=== PATIENT | male | born 1970 | race Caucasian/White ===

== ENCOUNTER 2017-06-24 18:36 | Observation (INO) | payer BC, OTHER ==
[~2017-06-24] VITALS: Ht 182.9 cm; Wt 105.3 kg
[2017-06-24] MEDS ORDERED: ASPIRIN 325 MG TABLET ONE (18:48)
[2017-06-24 18:57] LABS: BASOPHILS % (AUTO) 0.2 % (0.0-5.0); EOSINOPHILS % (AUTO) 0.2 % (0.0-8.0); HEMATOCRIT 45.3 % (42-54); LYMPHOCYTES % (AUTO) 11.4 % (21.0-51.0); MEAN CORPUSCULAR HEMOGLOBIN 30.2 pg (27.0-33.0); MEAN CORPUSCULAR HGB CONC 34.9 g/dL (32.0-36.0); MEAN CORPUSCULAR VOLUME 86.4 fL (79-99); MONOCYTES % (AUTO) 8.4 % (3.0-13.0); NEUTROPHILS % (AUTO) 79.8 % (40.0-77.0); NUCLEATED RED BLOOD CELLS 0.1 % (0.0-0.19); PLATELET COUNT (AUTO) 262 K/uL (130-400); RED BLOOD CELL COUNT(AUTO) 5.24 MIL/uL (4.50-6.20); RED CELL DISTRIBUTION WIDTH 13.2 % (11.0-15.5); WHITE BLOOD COUNT (AUTO) 12.7 K/uL (4.8-10.8)
[2017-06-24 19:08] LABS: INR 0.98 (0.85-1.15); PARTIAL THROMBOPLASTIN TIME 27.6 SEC (26.3-35.5); PROTHROMBIN TIME 10.3 SEC (9.6-11.6)
[2017-06-24 19:10] LABS: CREATININE 1.4 mg/dL (0.5-1.5); POTASSIUM 3.2 mmol/L (3.5-5.1)
[2017-06-24 19:24] LABS: ALBUMIN 4.3 g/dL (3.5-5.0); BILIRUBIN,TOTAL 0.5 mg/dL (0.2-1.0); CREATINE KINASE MB 1.7 ng/mL (0.5-3.6); TOTAL PROTEIN, SERUM 8.2 g/dL (6.0-8.3)
[2017-06-24] MEDS ORDERED: NITROGLYCERIN 1GM/1 INCH PACKET TD ONE (19:24)
[2017-06-24] MEDS ORDERED: FENTANYL CITRATE PF 50 MCG/1 ML 2ML VIAL ONE (21:01)
[2017-06-24] MEDS ORDERED: METOPROLOL TARTRATE 25 MG TAB ONE (22:19)
[2017-06-25] MEDS ORDERED: MORPHINE SULFATE 4 MG/1ML SYG ONE (01:16)
[2017-06-25] MEDS ORDERED: SODIUM CHLORIDE 0.9% 1000ML 1,000 ML IV SCH (01:36)
[2017-06-25] MEDS ORDERED: IPRATROPIUM/ALBUTEROL SULFATE 3 ML SOLUTION IH PRN (01:45)
[2017-06-25] MEDS ORDERED: MORPHINE SULFATE 2 MG/ML 1ML SYG IVP PRN (01:45)
[2017-06-25] MEDS ORDERED: ONDANSETRON HCL 4 MG/2 ML VIAL IVP PRN (01:45)
[2017-06-25] MEDS ORDERED: ACETAMINOPHEN 325 MG TAB PO PRN (01:45)
[2017-06-25] MEDS ORDERED: LIDOCAINE HCL-MPF 1% 2ML VIAL IVP PRN (01:45)
[2017-06-25] MEDS ORDERED: POTASSIUM CHLORIDE 10% ELIXIR 20 MEQ/15 ML UDCUP PO PRN (01:45)
[2017-06-25] MEDS ORDERED: HYDRALAZINE HCL 20 MG/ML VIAL IV PRN (01:45)
[2017-06-25] MEDS ORDERED: POTASSIUM CHLORIDE 20 MEQ ERTAB PO PRN (01:45)
[2017-06-25] MEDS: NITROGLYCERIN 1GM/1 INCH PACKET TD SCH ×3 (01:45→17:45)
[2017-06-25] MEDS ORDERED: POTASSIUM CHLORIDE 20MEQ/100ML 100 ML IV PRN (01:45)
[2017-06-25 01:49] LABS: APPEARANCE,URINE Clear (CLEAR); BILIRUBIN,URINE Negative (NEGATIVE); COLOR,URINE Yellow (YELLOW); GLUCOSE, URINE (UA) Negative (NEGATIVE); KETONES,URINE Negative (NEGATIVE); LEUKOCYTE ESTERASE ,URINE Negative (NEGATIVE); NITRATE,URINE Negative (NEGATIVE); OCCULT BLOOD,URINE Negative (NEGATIVE); PH,URINE 5.5 (5.0-8.0); PROTEIN,URINE Negative (NEGATIVE); UROBILINOGEN,URINE 0.2 mg/dL (0.2-1.0)
[2017-06-25 05:32] LABS: BASOPHILS % (AUTO) 0.2 % (0.0-5.0); EOSINOPHILS % (AUTO) 0.4 % (0.0-8.0); HEMATOCRIT 42.1 % (42-54); LYMPHOCYTES % (AUTO) 15.4 % (21.0-51.0); MEAN CORPUSCULAR HGB CONC 34.9 g/dL (32.0-36.0); MEAN CORPUSCULAR VOLUME 86.1 fL (79-99); PLATELET COUNT (AUTO) 241 K/uL (130-400); RED BLOOD CELL COUNT(AUTO) 4.89 MIL/uL (4.50-6.20); RED CELL DISTRIBUTION WIDTH 13.1 % (11.0-15.5); WHITE BLOOD COUNT (AUTO) 11.8 K/uL (4.8-10.8)
[2017-06-25 05:57] LABS: CREATININE 1.5 mg/dL (0.5-1.5); THYROID STIMULATING HORMONE 3.56 uIU/mL (0.36-3.74)
[2017-06-25] MEDS ORDERED: SODIUM CHLORIDE 0.9% 1000ML 1,000 ML IV ONE (05:57)
[2017-06-25] MEDS ORDERED: ROSU10TA PO (08:14)
[2017-06-25 08:19] LABS: CREATINE KINASE MB 0.6 ng/mL (0.5-3.6); CREATINE KINASE, TOTAL 324 U/L (21-232); MYOGLOBIN 76 ng/mL (10-92); TROPONIN I < 0.04 ng/mL (0.00-0.06)
[2017-06-25] MEDS ORDERED: ASPIRIN 325 MG TABLET ONE (08:32)
[2017-06-25] MEDS ORDERED: METOPROLOL TARTRATE 25 MG TAB ONE (08:32)
[2017-06-25] MEDS ORDERED: NITROGLYCERIN 1GM/1 INCH PACKET TD ONE (08:32)
[2017-06-25] MEDS ORDERED: FAMOTIDINE 20MG TAB 20 MG TAB ONE (08:33)
[2017-06-25] MEDS: METOPROLOL TARTRATE 25 MG TAB PO SCH ×2 (09:00→20:47)
[2017-06-25] MEDS: ASPIRIN 325 MG TABLET PO SCH (09:00)
[2017-06-25] MEDS: FAMOTIDINE 20MG TAB 20 MG TAB PO SCH ×2 (09:00→20:47)
[2017-06-25 12:20] VITALS: BP 116/80
[2017-06-25 12:38] LABS: CREATINE KINASE MB < 0.5 ng/mL (0.5-3.6); CREATINE KINASE, TOTAL 256 U/L (21-232)
[2017-06-25] MEDS: REGADENOSON 0.4 MG/5 ML PF SYG IVP SCH ×2 (15:45→17:29)
[2017-06-25 18:55] VITALS: BP 137/88
[2017-06-25 19:35] VITALS: BP 152/68
[2017-06-26 00:05] VITALS: BP 94/55
[2017-06-26] MEDS: NITROGLYCERIN 1GM/1 INCH PACKET TD SCH ×2 (02:14→09:45)
[2017-06-26 03:53] VITALS: BP 121/84
[2017-06-26 04:25] LABS: BASOPHILS % (AUTO) 0.3 % (0.0-5.0); EOSINOPHILS % (AUTO) 0.9 % (0.0-8.0); HEMATOCRIT 40.1 % (42-54); MEAN CORPUSCULAR HEMOGLOBIN 30.5 pg (27.0-33.0); MEAN CORPUSCULAR HGB CONC 35.2 g/dL (32.0-36.0); MEAN CORPUSCULAR VOLUME 86.6 fL (79-99); MONOCYTES % (AUTO) 11.7 % (3.0-13.0); NEUTROPHILS % (AUTO) 66.1 % (40.0-77.0); PLATELET COUNT (AUTO) 223 K/uL (130-400); RED BLOOD CELL COUNT(AUTO) 4.63 MIL/uL (4.50-6.20); RED CELL DISTRIBUTION WIDTH 13.1 % (11.0-15.5); WHITE BLOOD COUNT (AUTO) 9.2 K/uL (4.8-10.8)
[2017-06-26 04:41] LABS: CREATININE 1.4 mg/dL (0.5-1.5)
[2017-06-26 07:18] VITALS: BP 129/75
[2017-06-26] MEDS ORDERED: LOSA25TA21 PO (09:46)
[2017-06-26] MEDS: FAMOTIDINE 20MG TAB 20 MG TAB PO SCH (10:06)
[2017-06-26] MEDS: METOPROLOL TARTRATE 25 MG TAB PO SCH (10:06)
[2017-06-26] MEDS: ASPIRIN 325 MG TABLET PO SCH (10:06)
[2017-06-26 11:01] VITALS: BP 133/85
== END 2017-06-26 12:00 | disposition home or self-care (01) ==
LOC: EDH 18:36 → EDHIP 21:55 → 2CH 06-25 11:47
PROVIDERS: ADMIT Internal Medicine; ATTEND Internal Medicine
DX: I20.9 Angina pectoris, unspecified (principal); E78.5 Hyperlipidemia, unspecified; E87.6 Hypokalemia; E86.0 Dehydration; M62.82 Rhabdomyolysis; I10 Essential (primary) hypertension
CPT/HCPCS: 36415 ×3; 71045; 78452; 80048 ×2; 80053; 80061; 81003; 82550 ×3; 82553 ×3; 83874 ×4; 83880; 84443; 84484 ×3; 85025 ×3; 85378; 85610; 85730; 93005 ×3; 93017; 93306; 94664; 99285; A9500 ×2; G0378 ×38; J2270; J2785; J3010; J7030; 96374